=== PATIENT | female | born 1990 | race Caucasian/White ===

== ENCOUNTER 2018-11-22 12:25 | Inpatient (IN) ==
[2018-11-22] MEDS ORDERED: *HR* Labetalol 20 MG/4 ML SYRINGE IVP ONE ×5 (12:50→16:59)
[2018-11-22] MEDS ORDERED: Ringers Solution, Lactated 1,000 ML ONE ×3 (12:53→20:06)
[2018-11-22] MEDS ORDERED: Naloxone 0.4 MG/ML INJ IVP PRN (13:00)
[2018-11-22] MEDS ORDERED: Lidocaine 1% 20 ML MDV INFILT PRN (13:00)
[2018-11-22] MEDS ORDERED: Metoclopramide 10 MG/2 ML VIAL IVP PRN ×2 (13:00→22:28)
[2018-11-22] MEDS ORDERED: Famotidine 20 MG/2 ML VIAL IVP PRN (13:00)
[2018-11-22] MEDS ORDERED: Ringers Solution, Lactated 1,000 ML IVC SCH (13:00)
[2018-11-22] MEDS ORDERED: Ondansetron 4 MG/2 ML VIAL IVP PRN ×2 (13:00→22:28)
[2018-11-22] MEDS ORDERED: Ringers Solution, Lactated 500 ML IVC ONE (13:06)
--- NOTE | 2018-11-22 13:13 | OB/GYN History & Physical ---
Date of Encounter: 11/22/18 Time of Encounter: 13:09 Assessment and Plan (1) and not yet delivered in third trimester Current visit: Yes Status: Acute (2) 36 weeks gestation of Current visit: Yes Status: Acute (3) Chronic hypertension with superimposed pre-eclampsia Current visit: Yes Status: Acute We will admit the patient we will attempt to get blood pressure under control with IV labetalol or hydralazine. Magnesium sulfate and we will discuss induction of labor History of Present Illness HPI: Ms. Garcia is a 28 year old female 2 para 0010 at 36-3/7 weeks who was sent in from the office secondary to hypertension. Patient has a history of chronic hypertension was on labetalol 200 mg 3 times a day blood pressures have been relatively stable however today blood pressure was 160/110. Biophysical profile performed on the office was 8 out of 8. Patient is denying any headaches blurred vision scotoma has not noticed any significant swelling of the lower extremities or upper extremities. She states she did take her labetalol at approximately 9 AM this morning. Upon arrival to labor and delivery patient had blood pressures of 190/115 with a repeat of 173/113. IV was immediately placed and 40 mg labetalol IV push was administered. She has had previous PIH labs and last protein creatinine ratio was 0.57. PIH labs and protein Daphnie ratio is pending at the time of this dictation. States she has been having good movement and biophysical profile again was 8 out of 8 however NST today baby is very flat there is no variability at all. Past Med Surg Social Fam HX - Past Medical History Medical history: hypertension Psychiatric history: no psych history - Past Surgical History Surgical History: other Additional surgical history: Right salpingectomy secondary to ectopic - Social History Smoking Status: Never smoker Smokeless Tobacco Status: No Alcohol use: none Drug use: none Occupational status: employed Current living situation: Home - Independent Activity Level: Independent ambulation Recent Out of Country Travel Within the Last 8 Weeks: No Exposure or Possible Exposure to Illness During Travel: No - Additional Family History Additional family history: Family history noncontributory Obstetrical History - Pregnancies : 2 Para: 0 Term: 0 : 0 Ab's: 1 Livin Review of System OB All systems PM: reviewed and no additional remarkable complaints except as stated Exam - Constitutional Constitutional: well developed, well nourished, mild distress, morbidly obese - HEENT HEENT: EOMI, PERRL - Neck Neck exam: full ROM - Lungs Respiratory exam: CTAB - Cardiovascular Cardiovascular exam: RRR - Abdomen Abdomen: Present: bowel sounds normal, gravid ( heart tones 140s loss of variability no decelerations seen no contractions in) - Cervix Dilation: 1 Effacement: 25 Station: -3 Results All other labs normal. - VTE Reasons for not Prescribing Prophylaxis: Treatment not Indicated - Low risk for VTE
[2018-11-22 13:24] LABS: Basophils % 0.2 %; Eosinophils # 0.1 K/mcL (0.0-0.6); Eosinophils % 0.6 %; Hematocrit 38.3 % (35.3-44.9); Hemoglobin 12.1 g/dL (11.5-15.4); Immature Granulocytes % 2.1 % (0-4); Lymphocytes # 1.6 K/mcL (0.6-4.6); Lymphocytes % 11.6 %; Mean Corpuscular HGB Conc 31.6 g/dL (31.6-35.5); Mean Corpuscular Volume 88.7 fL (83.0-100.0); Mean Platelet Volume 12.4 fL (9.4-12.4); Monocytes # 0.6 K/mcL (0.0-1.3); Neutrophils # 11.4 K/mcL (1.6-8.9); Platelet Count 294 K/mcL (140-400); Red Blood Count 4.32 M/mcL (3.82-4.97); Red Cell Distribution Width 16.4 % (11.5-14.5); Segmented Neutrophils % 81.5 %
[2018-11-22] MEDS ORDERED: Calcium Gluconate 1,000 MG/10 ML VIAL IV PRN (13:24)
[2018-11-22] MEDS ORDERED: Magnesium Sulfate 20 gm/500mL 20 GM/500 ML IV.SOLN IVC SCH (13:30)
[2018-11-22 13:35] LABS: Protein/Creatinine Ratio,Urine 1.23 mg/mg (0.00-0.20)
[2018-11-22 13:36] LABS: Amphetamine Screen,Urine Negative ng/mL (Cutoff=1000); Barbiturate Screen,Urine Negative ng/mL (Cutoff=200); Benzodiazepines Screen,Urine Negative ng/mL (Cutoff=200); Cannabinoid Screen,Urine Negative ng/mL (Cutoff = 50); Cocaine Screen,Urine Negative ng/mL (Cutoff= 300); Opiate Screen,Urine Negative ng/mL (Cutoff=300); Phencyclidine Screen,Urine Negative ng/mL (Cutoff=25)
[2018-11-22 13:52] LABS: Alanine Aminotransferase 10 Units/L (7-52); Aspartate Amino Transferase 15 Units/L (13-39); BUN/Creatinine Ratio 26 (6-26); Blood Urea Nitrogen 21 mg/dL (6-20); Lactate Dehydrogenase 196 Units/L (140-271); Uric Acid 6.9 mg/dL (2.3-7.6); eGFR For African Americans > 60 (> 60); eGFR For Non-African Americans > 60 (> 60)
[2018-11-22] MEDS ORDERED: NIFEdipine XL (24 HR) 60 MG TAB.ER.24 PO SCH (15:23)
[2018-11-22] MEDS ORDERED: Penicillin G Potassium 5,000,000 UNIT in 0.9 % Sodium Chloride Mini Bag 100 ML IVPB ONE (15:46)
[2018-11-22] MEDS ORDERED: Penicillin G Potassium 2,500,000 UNIT in 0.9 % Sodium Chloride 100 ML IVPB SCH (16:00)
--- NOTE | 2018-11-22 17:03 | OB/GYN Progress Note ---
Date of Encounter: 11/22/18 Time of Encounter: 17:00 - Assessment and Plan (1) and not yet delivered in third trimester Current Visit: Yes Status: Acute (2) 36 weeks gestation of Current Visit: Yes Status: Acute (3) Chronic hypertension with superimposed pre-eclampsia Current Visit: Yes Status: Acute Patient will receive another 80 mg of labetalol IV push the blood pressure does not stabilize we will discuss transfer to [facility] Subjective - Subjective Interval history: Patient's blood pressure continues to remain elevated. She currently has received 40 mg of labetalol followed by a milligrams labetalol followed by 10 mg of hydralazine followed by 60 mg XL of Procardia. She received a 6 g bolus of magnesium sulfate and is on 2 g an hour. Her recent blood pressure was 181/100. We will give her another dose of 80 mg labetalol IV push. Patient was discussed with maternal- medicine we will do some recommendations however the recommendation to be could not control her blood pressure would need to be on the nifedipine drip and an ICU setting with me in would have to transfer the patient to go issue. Did discuss with the patient the potential need for transfer due to fact were having difficulty controlling her blood pressure she has an unfavorable cervix at this point I do not feel that proceeding straight to section is warranted yet. We cannot control her blood pressure with 80 mg of labetalol will call M again and discussed transfer. Antepartum ROS: other (hypertension) Objective - Vital Signs Vital Signs: Intake and Output 11/22/18 11/22/18 11/22/18 07:59 15:59 23:59 Other: Weight 150.8 kg Patient Weight 11/22/18 23:59 Weight 150.8 kg - Exam FHR comments: 140s and loss of variability no decelerations seen, no contraction seen Abdomen: Present: normal appearance, other (Morbidly obese with large pannus noted) Cervical dilation: 0 Cervix effacement: thick station: NE - Labs Labs: Abnormal lab results WBC 14.0 K/mcL (4.3-11.1) H 11/22/18 13:00 RDW 16.4 % (11.5-14.5) H 11/22/18 13:00 Neutrophils # 11.4 K/mcL (1.6-8.9) H 09/09/19 13:00 BUN 21 mg/dL (6-20) H 11/22/18 13:00 Protein/Creatinin Ratio 1.23 mg/mg (0.00-0.20) H 11/22/18 13:00 Urine Total Protein 65 mg/dL (1-14) H 11/22/18 13:00
[2018-11-22] MEDS ORDERED: ceFAZolin 3,000 MG in Water for inj. (sterile) 30 ML IVP ONE (18:33)
[2018-11-22] MEDS ORDERED: Azithromycin 500 MG in 0.9 % Sodium Chloride 250 ML IVPB ONE (18:35)
--- NOTE | 2018-11-22 18:37 | Anesthesia Evaluation PreOp ---
Date of Encounter: 11/22/18 Time of Encounter: 18:35 - Past History Planned Operation: csection for uncontrolled hypertension Cardiac History: HTN (chronic hypertension with superimposed PIH) Pulmonary History: Denies Any Significant HX JUTE BAG SEWER History: Denies Any Significant HX Other Medical History: Denies Any Significant HX Anesthesia History: No Prior Anesthetic Complications, Past Anesthesia (laparotomy for ectopic) : Yes (36 weeks, g1) Alcohol Use: none Drug use: none Medications and Allergies Aspirin 81 mg PO ONCE 11/22/18 [History] Ferrous Sulfate 11/22/18 [History] Labetalol HCl 200 mg PO TID 11/22/18 [History] Tablet 11/22/18 [History] Allergy/AdvReac Type Severity Reaction Status Date / Time No Known Allergies Allergy Verified 11/22/18 13:53 - Meds/Allergy Pre-op Review Medications Reviewed: Yes Allergies Reviewed: Yes Beta Blockers on Current Med List: No Anesthesia Results - Labs 11/22/18 13:00 11/22/18 13:00 Anesthesia Exam O2 Sat Height 1.68 m Weight 150.8 kg Height: 66 Weight: 332 NPO (# of Hours): 2 hours clear liquids, 8 hrs solids - HEENT Pupil (Motor): Pupils equal Mallampati: I Teeth: Normal Oral Opening: Greater than 3 - JUTE BAG SEWER LOC: Oriented JUTE BAG SEWER Motor: Normal RUE, Normal LUE, Normal RLE, Normal LLE, Normal Face JUTE BAG SEWER Sensory: Normal: RUE, LUE, RLE, LLE, Face - Cardiac Rhythm: Regular Murmur: None JVD: No Carotid Bruit: No - Pulmonary Breath Sounds: bilateral Clear Respiratory Effort: Symmetrical Anesthesia Assess/Plan ASA Score: 3 Level of consciousness: Cooperative Anesthetic Plan: Epidural Monitoring Plan: Standard Monitors Recovery Plan: PACU
--- NOTE | 2018-11-22 18:40 | OB Labor Progress Note ---
Date of Encounter: 11/22/18 Time of Encounter: 18:38 Labor Progress Note - Subjective Subjective: Patient's blood pressure continues to be a problem we did give her the 80 mg labetalol but the blood pressure in the normal range but baby did not tolerate started having decelerations and became very flat. Having difficulty monitoring the baby due to her morbid obesity and blood pressures creep back up again. We have been unable to even get the induction started and I feel at this point it is unsafe to keep going to have recommended proceeding on with section. This it previously been discussed maternal- medicine advise me if we could not control her blood pressure medically and baby continued to look flat to proceed on with section. This was discussed with the patient and she has given her consent to proceed on with surgery. - Heart Tones Heart Tones: heart tones 140s and loss of variability and occasional decelerations noted - [place]: Occasional contractions seen. - Interventions Interventions: Consent for primary section has been obtained anesthesia has been notified and we will proceed on with a primary low transverse section.
[2018-11-22] MEDS ORDERED: *HR* Morphine Sulfate/PF 10 MG/10 ML AMPUL ONE (18:42)
[2018-11-22] MEDS ORDERED: *HR* FentaNYL (PF) 100 MCG/2 ML VIAL ONE (18:43)
[2018-11-22] MEDS ORDERED: *HR* Oxytocin 10 UNIT/ML VIAL IM ONE ×2 (18:44→20:06)
[2018-11-22] MEDS ORDERED: *HR* Phenylephrine 10 MG/ML VIAL ONE (18:45)
[2018-11-22] MEDS ORDERED: Bupivacaine/PF 0.75% in Dex 2 ML AMPUL INFILT ONE (18:47)
[2018-11-22] MEDS ORDERED: Lidocaine -MPF 2% 5 ML VIAL ONE (18:48)
--- NOTE | 2018-11-22 20:48 | OB/GYN Procedure Note ---
Section - Date of procedure: 11/22/18 Preop diagnosis: other ( at 36-3/7 weeks, severe preeclampsia, nonreassuring heart tones) Post-op diagnosis: same Procedure: primary low transverse Surgeon: Micheal Bearden Quantitated Blood Loss: 500 Was there an speech therapy assistant present: Yes Glassware Maker Demonstrator: Florin Mooney Anesthesiologist: Rosendo Victoria Service Desk Associate: Fidencio Marina Anesthesia Type: Spinal section complications: none Disposition: L&D Recovery Room Specimens: Placenta, Cord gasses - (s) A Infant Delivery Date: 11/22/18 Infant Delivery Time: 19:30 Presentation: vertex Position: MYRANDA Route of delivery: other ( section) Gender: Female Viability: Viable Pounds: 6 Ounces: 4 Gram Weight: 2.84 kg at 1 minute: 6 at 5 minutes: 8 Shoulder Dystocia: not encountered Specimens collected: venous cord gases, arterial cord gases Placenta: spontaneous Cord: nuchal cord (x2), nuchal reduced - Narrative Narrative: Patient is a 28-year-old 2 para 0010 at 36-3/7 weeks who presented from the office secondary to elevated blood pressures. Patient blood pressures in the office of 160/110 on arrival to labor and delivery blood pressures were running in the 180s to 190s over 110-115. Patient did receive IV labetalol multiple doses along with IV hydralazine. Patient was started on magnesium sulfate for the 6 g bolus followed by 2 g an hour. Patient's case was discussed maternal medicine recommended adding Procardia and 60 mg XL was started. We cannot keep patient's blood pressure stable we have given her second dose of labetalol 80 mg per protocol the patient blood pressure went into normal range the baby did not tolerate this. We have difficulty monitoring the patient due to her morbid obesity status and we will monitor baby there was no variability and she was having some decelerations. She had an unfavorable cervix being closed thick and high. We had discussed possible transfer to [facility] unfortunately could not stabilize her blood pressure and heart tones being nonreassuring she was unstable to be transferred. Because we had difficulty monitoring baby and I could not really assess how the baby was doing and blood pressures were too difficult to control a section was called. Procedure: Patient was taken to the operating room where spinal anesthesia was found adequate. She was not a dorsal supine position leftward tilt prepped and draped in usual fashion. Patient's abdomen was taped up prior to being draped. Timeout was then obtained. A Pfannenstiel incision was made with a scalpel and carried down to the underlying tissue until the fascia was identified. Fascia was nicked in midline and extended laterally with Parsons scissors. The superior and inferior edges of the fascia grasped tented up and dissected rectus muscles. Rectus muscles were in midline parietal peritoneum was then applied tented up and entered sharply. This was extended superiorly and inferiorly with Metzenbaum scissors. The bladder blade was inserted the vesicouterine peritoneum was identified tented up and entered sharply. This was extended laterally and the bladder flap was created digitally. The lower uterine segment was incised with a scalpel and incision was extended laterally with digital manipulation. Membranes were ruptured large amount of clear fluid was noted. The infant's head was then brought up through the incision, there was a nuchal cord 2 which was loose and reduced then then the body of the was delivered cord was clamped and cut was handed off to waiting pediatric team. Cord blood was not needed this time but cord gases were obtained. The placenta was delivered spontaneously 3 vessel cord noted. An Luis self- retaining retractor was placed in the incision and secured in place. The uterus was cleaned of all clots and debris and the lower uterine segment was closed using 0 Vicryl in a running locking stitch by to allow closure. We had good hemostasis gutters were cleaned of all clots and debris and copiously irrigated. The omentum was herniating through the incision so the fascia was closed using a 2-0 Vicryl in a running stitch. The fascia was then closed using a 0 double loop PDS from both corners to midline. The subcutaneous Tissue was then closed using a #1 chromic and the skin was closed using a 4-0 Vicryl in a subcuticular manner. All needles and sponge counts were correct 3 a peak a dressing was applied and the patient was taken to the recovery room in stable condition. Patient did receive preoperative antibiotics. We will start magnesium sulfate back on the patient along with her labetalol 200 mg 3 times a day.
--- NOTE | 2018-11-22 22:14 | Anesthesia Evaluation Post Op ---
Date of Encounter: 11/22/18 Time of Encounter: 22:13 - Vital Signs Vital Signs: Vital Signs/O2 Sat, Most Current Temp Pulse Resp BP Pulse Ox 98.1 F 82 18 150/88 97 11/22/18 21:55 11/22/18 21:55 11/22/18 21:55 11/22/18 21:55 11/22/18 21:55 - Lungs Lungs: Clear Ascult./Percussion - Airway Airway: Non-obstructed - Cardiovascular Regular Rate - Mental Status Mental Status: Alert & Oriented, Answers Appropriately - Pain Pain Scale: 4 - Nausea Vomiting Nausea Vomiting: Not Present - Hydration Hydration: Tolerates oral liquids, Meza catheter
[2018-11-22] MEDS ORDERED: Simethicone 80 MG TAB.CHEW PO PRN (22:28)
[2018-11-22] MEDS ORDERED: Sennosides 8.6 MG TABLET PO PRN (22:28)
[2018-11-22] MEDS ORDERED: 0.9 % Sodium Chloride 1,000 ML IVC SCH (22:28)
[2018-11-22] MEDS ORDERED: *HR* OxyCODONE/APAP 10/325 TABLET PO PRN (22:28)
[2018-11-22] MEDS ORDERED: Oxytocin 20 units/ LR 1000 mL 20 UNIT/1,000 ML BAG IVC SCH (22:28)
[2018-11-22] MEDS ORDERED: *HR* OxyCODONE/APAP 5/325 TABLET PO PRN (22:28)
[2018-11-23] MEDS: metroNIDAZOLE 500 MG TABLET PO SCH ×4 (00:49→21:26)
[2018-11-23] MEDS: cephALEXin 500 MG CAPSULE PO SCH ×4 (00:49→21:26)
[2018-11-23 05:53] LABS: Basophils % 0.2 %; Eosinophils % 0.2 %; Hematocrit 33.8 % (35.3-44.9); Hemoglobin 10.9 g/dL (11.5-15.4); Immature Granulocytes % 1.7 % (0-4); Lymphocytes # 1.5 K/mcL (0.6-4.6); Lymphocytes % 9.4 %; Mean Corpuscular HGB Conc 32.2 g/dL (31.6-35.5); Mean Corpuscular Volume 86.9 fL (83.0-100.0); Mean Platelet Volume 11.9 fL (9.4-12.4); Monocytes # 0.7 K/mcL (0.0-1.3); Monocytes % 4.2 %; Neutrophils # 13.6 K/mcL (1.6-8.9); Platelet Count 255 K/mcL (140-400); Red Blood Count 3.89 M/mcL (3.82-4.97); Red Cell Distribution Width 16.8 % (11.5-14.5); Segmented Neutrophils % 84.3 %; White Blood Count 16.1 K/mcL (4.3-11.1)
[2018-11-23] MEDS ORDERED: *HR* Enoxaparin 40 MG/0.4 ML SYRINGE SQ ONE (06:54)
[2018-11-23] MEDS: Ibuprofen 600 MG TABLET PO PRN ×3 (07:56→21:26)
[2018-11-23] MEDS: Prenatal Vit/FA 1 EACH TABLET PO SCH (07:56)
[2018-11-23] MEDS ORDERED: Magnesium Sulfate 20 gm/500mL 20 GM/500 ML IV.SOLN IVC SCH (09:15)
[2018-11-23] MEDS ORDERED: Ringers Solution, Lactated 1,000 ML ONE (12:34)
--- NOTE | 2018-11-23 13:52 | OB/GYN Progress Note ---
Date of Encounter: 11/23/18 Time of Encounter: 13:50 - Assessment and Plan (1) S/P section Current Visit: Yes Status: Acute Routine postop care with magnesium for 24 hours. She is able to get up with assist. (2) Chronic hypertension with superimposed pre-eclampsia Current Visit: Yes Status: Acute Continue Magnesium for 24 hours PP Subjective - Subjective Principal diagnosis: s/p primary for superimposed severe pre-e Interval history: Patient doing well postop. She states her pain is well controlled. She would really like to ambulate if possible. She denies any nausea or vomiting and is tolerating PO intake well. She has not had any headaches, visual changes, or RUQ pain. Patient reports: appetite normal, pain well controlled, no nauseated [place]: doing well, nursing well Objective - Vital Signs Latest vital signs: Vital Signs Temp Pulse Resp BP Pulse Ox 11/23/18 12:19 97.6 F 79 16 127/75 11/23/18 11:50 79 16 127/75 11/23/18 09:50 78 16 108/53 11/23/18 08:59 97.3 F L 81 16 106/59 11/23/18 08:12 97.3 F L 97 11/23/18 07:50 97.5 F L 78 16 131/76 11/23/18 06:50 78 16 133/75 11/23/18 05:40 77 16 153/82 11/23/18 04:40 76 16 151/81 11/23/18 03:40 73 14 139/78 11/23/18 02:40 73 16 142/86 11/23/18 01:40 97.9 F 79 16 149/77 97 11/23/18 00:40 97.9 F 81 16 150/95 98 11/22/18 23:40 98 F 83 16 152/94 96 11/22/18 23:10 97.6 F 83 16 157/90 96 11/22/18 22:40 98.2 F 88 18 159/100 97 11/22/18 22:25 98.1 F 89 18 165/97 97 11/22/18 22:10 98 F 85 18 162/99 98 11/22/18 21:55 98.1 F 82 18 150/88 97 11/22/18 21:40 98.2 F 83 18 159/91 98 11/22/18 21:25 98 F 85 18 160/93 97 11/22/18 21:10 98.1 F 83 18 150/91 98 11/22/18 20:55 98.1 F 88 18 156/92 99 Intake and Output 11/22/18 11/23/18 11/23/18 23:59 07:59 15:59 Intake Total 240 / 240 Output Total 3225 / 3225 3150 / 4050 900 / 4050 Balance -3225 / -3225 -3150 / -3810 -660 / -3810 Intake: Oral 240 / 240 Output: Urine 1000 / 1000 1950 / 2850 900 / 2850 Catheter 2225 / 2225 1200 / 1200 Other: Meal Breakfast Percent of Meal Consumed 100% - Exam Lungs: bilateral: normal Chest: Normal S1, Normal S2 Extremities: Present: normal, edema. Absent: tenderness Abdomen: Present: soft. Absent: rigidity, distention, tenderness Incision: Present: dressed (with Harpreet dressing) Uterus: Present: other (no palpable due to obesity and patient's current position (pumping in seated position)) - Labs Labs: Laboratory Results - last 24 hr 11/22/18 11/22/18 11/23/18 13:00 17:35 05:21 WBC 16.1 H RBC 3.89 Hgb 10.9 L Hct 33.8 L MCV 86.9 MCH 28.0 MCHC 32.2 RDW 16.8 H Plt Count 255 MPV 11.9 Immature Gran % 1.7 Seg Neutrophils % 84.3 Lymphocytes % 9.4 Monocytes % 4.2 Eosinophils % 0.2 Basophils % 0.2 Neutrophils # 13.6 H Lymphocytes # 1.5 Monocytes # 0.7 Eosinophils # 0.0 Basophils # 0.0 BUN 21 H Creatinine 0.82 Est GFR ( Amer) > 60 Est GFR (Non-Af Amer) > 60 BUN/Creatinine Ratio 26 POC Glucose 85 Uric Acid 6.9 Magnesium AST 15 ALT 10 Lactate Dehydrogenase 196 11/23/18 05:21 WBC RBC Hgb Hct MCV MCH MCHC RDW Plt Count MPV Immature Gran % Seg Neutrophils % Lymphocytes % Monocytes % Eosinophils % Basophils % Neutrophils # Lymphocytes # Monocytes # Eosinophils # Basophils # BUN Creatinine Est GFR ( Amer) Est GFR (Non-Af Amer) BUN/Creatinine Ratio POC Glucose Uric Acid Magnesium 4.8 H AST ALT Lactate Dehydrogenase
[2018-11-24] MEDS ORDERED: *HR* Enoxaparin 40 MG/0.4 ML SYRINGE SQ SCH (06:00)
[2018-11-24] MEDS: Ibuprofen 600 MG TABLET PO PRN (08:05)
[2018-11-24] MEDS: metroNIDAZOLE 500 MG TABLET PO SCH (08:05)
[2018-11-24] MEDS: Prenatal Vit/FA 1 EACH TABLET PO SCH (08:05)
[2018-11-24] MEDS: cephALEXin 500 MG CAPSULE PO SCH (08:06)
[2018-11-24 08:57] VITALS: BP 126/80
--- NOTE | 2018-11-24 09:13 | Discharge Summary ---
Date of Encounter: 11/24/18 Time of Encounter: 09:07 - Discharge Diagnosis (1) S/P section Priority: Primary Status: Acute Comments: Patient meeting day two milestones. Pain well-controlled with prescribed medications. Voiding without difficulty, tolerating regular diet, bleeding light. No bowel movement yet, + flatus. Anticipate discharge today (2) Breast feeding status of mother Priority: Secondary Status: Acute Comments: support as needed. Patient states she already has a breast pump. (3) Chronic hypertension with superimposed pre-eclampsia Priority: Secondary Status: Acute Comments: Continue labetalol 200 mg 3 times a day. Patient states she still has a prescription for this dosage at home with 3 refills. Blood pressures have been in normal range with an occasional elevated reading is in her period. She denies any signs and symptoms of elevated blood pressure at this point and requests to go home. She will be scheduled for a follow-up blood pressure check in 1 week. - Discharge Medications Prescriptions: New Ibuprofen [Motrin] 600 mg PO Q6HR PRN #60 tablet PRN Reason: Cramping OxyCODONE/APAP 5/325 [Percocet 5/325 MG] 1 each PO Q6H PRN 7 Days #28 tablet PRN Reason: Moderate pain 4-6 Docusate [Colace] 100 mg PO BID #60 capsule Simethicone [Gas-X] 80 mg PO TID PRN tab.chew PRN Reason: Dyspepsia Continued Labetalol HCl 200 mg PO TID Tablet Aspirin 81 mg PO ONCE Discontinued Ferrous Sulfate Home Medications: Aspirin 81 mg PO ONCE 11/22/18 [History] Labetalol HCl 200 mg PO TID 11/22/18 [History] Tablet 11/22/18 [History] Docusate [Colace] 100 mg PO BID #60 capsule 11/24/18 [Rx] Ibuprofen [Motrin] 600 mg PO Q6HR PRN #60 tablet 11/24/18 [Rx] OxyCODONE/APAP 5/325 [Percocet 5/325 MG] 1 each PO Q6H PRN 7 Days #28 tablet 11/24/18 [Rx] Simethicone [Gas-X] 80 mg PO TID PRN tab.chew 11/24/18 [Rx] Allergies/Adverse Reactions: Allergy/AdvReac Type Severity Reaction Status Date / Time No Known Allergies Allergy Verified 11/22/18 13:53 Data Procedures and tests throughout hospitalization: Laboratory Tests 11/22/18 11/22/18 11/22/18 13:00 13:00 13:00 WBC 14.0 H RBC 4.32 Hgb 12.1 Hct 38.3 MCV 88.7 MCH 28.0 MCHC 31.6 RDW 16.4 H Plt Count 294 MPV 12.4 Immature Gran % 2.1 Seg Neutrophils % 81.5 Lymphocytes % 11.6 Monocytes % 4.0 Eosinophils % 0.6 Basophils % 0.2 Neutrophils # 11.4 H Lymphocytes # 1.6 Monocytes # 0.6 Eosinophils # 0.1 Basophils # 0.0 BUN Creatinine Est GFR ( Amer) Est GFR (Non-Af Amer) BUN/Creatinine Ratio POC Glucose Uric Acid Magnesium AST ALT Lactate Dehydrogenase Urine Creatinine 53 Protein/Creatinin Ratio 1.23 H Urine Total Protein 65 H Urine Opiates Screen Negative Ur Buprenorphine Scrn Negative Ur Barbiturates Screen Negative Ur Phencyclidine Scrn Negative Ur Amphetamines Screen Negative U Benzodiazepines Scrn Negative Urine Cocaine Screen Negative U Marijuana (THC) Screen Negative Ur Drug Screen Interp See Below 11/22/18 11/22/18 11/23/18 13:00 17:35 05:21 WBC 16.1 H RBC 3.89 Hgb 10.9 L Hct 33.8 L MCV 86.9 MCH 28.0 MCHC 32.2 RDW 16.8 H Plt Count 255 MPV 11.9 Immature Gran % 1.7 Seg Neutrophils % 84.3 Lymphocytes % 9.4 Monocytes % 4.2 Eosinophils % 0.2 Basophils % 0.2 Neutrophils # 13.6 H Lymphocytes # 1.5 Monocytes # 0.7 Eosinophils # 0.0 Basophils # 0.0 BUN 21 H Creatinine 0.82 Est GFR ( Amer) > 60 Est GFR (Non-Af Amer) > 60 BUN/Creatinine Ratio 26 POC Glucose 85 Uric Acid 6.9 Magnesium AST 15 ALT 10 Lactate Dehydrogenase 196 Urine Creatinine Protein/Creatinin Ratio Urine Total Protein Urine Opiates Screen Ur Buprenorphine Scrn Ur Barbiturates Screen Ur Phencyclidine Scrn Ur Amphetamines Screen U Benzodiazepines Scrn Urine Cocaine Screen U Marijuana (THC) Screen Ur Drug Screen Interp 11/23/18 05:21 WBC RBC Hgb Hct MCV MCH MCHC RDW Plt Count MPV Immature Gran % Seg Neutrophils % Lymphocytes % Monocytes % Eosinophils % Basophils % Neutrophils # Lymphocytes # Monocytes # Eosinophils # Basophils # BUN Creatinine Est GFR ( Amer) Est GFR (Non-Af Amer) BUN/Creatinine Ratio POC Glucose Uric Acid Magnesium 4.8 H AST ALT Lactate Dehydrogenase Urine Creatinine Protein/Creatinin Ratio Urine Total Protein Urine Opiates Screen Ur Buprenorphine Scrn Ur Barbiturates Screen Ur Phencyclidine Scrn Ur Amphetamines Screen U Benzodiazepines Scrn Urine Cocaine Screen U Marijuana (THC) Screen Ur Drug Screen Interp Date of admission: 11/22/18 12:25 Primary care physician: Felicia White MD Discharging clinician: Alexandra Wilkins Anticipated date of discharge: 11/24/18 - Patient Status Disposition: Home, Self-Care Condition: Good Functional capacity at discharge: independent ambulation Overall status at discharge: patient is progressing back to baseline - Discharge Instructions Follow Up With: Felicia White MD [Primary Care Provider] - Micheal Bearden DO [Partnered Physician] - - Diet and Activity Activity: resume usual activities as tolerated Diet: regular diet Hospital Course Reason for admission: induction of labor, pre-eclampsia (severe) Delivery: section Episiotomy: none Laceration: none Other procedures: none complications: none Discharge diagnosis: IUP at term delivered, pre-eclampsia [place] baby: female Hospital course: Date of procedure: 11/22/18 Preop diagnosis: other ( at 36-3/7 weeks, severe preeclampsia, nonreassuring heart tones) Post-op diagnosis: same Procedure: primary low transverse Surgeon: Micheal Bearden Quantitated Blood Loss: 500 Was there an assistant analyst present: Yes Hand Brush Filler: Florin Mooney Anesthesiologist: Rosendo Victoria Kick Boxer: Fidencio Marina Anesthesia Type: Spinal section complications: none Disposition: L&D Recovery Room Specimens: Placenta, Cord gasses - (s) Infant A Infant Delivery Date: 11/22/18 Delivery Time: 19:30 Presentation: vertex Position: MYRANDA Route of delivery: other ( section) Gender: Female Viability: Viable Pounds: 6 Ounces: 4 Gram Weight: 2.84 kg at 1 minute: 6 at 5 minutes: 8 Shoulder Dystocia: not encountered Specimens collected: venous cord gases, arterial cord gases Placenta: spontaneous Cord: nuchal cord (x2), nuchal reduced - Narrative Narrative: Patient is a 28-year-old 2 para 0010 at 36-3/7 weeks who presented from the office secondary to elevated blood pressures. Patient blood pressures in the office of 160/110 on arrival to labor and delivery blood pressures were running in the 180s to 190s over 110-115. Patient did receive IV labetalol multiple doses along with IV hydralazine. Patient was started on magnesium sulfate for the 6 g bolus followed by 2 g an hour. Patient's case was discussed maternal medicine recommended adding Procardia and 60 mg XL was started. We cannot keep patient's blood pressure stable we have given her second dose of labetalol 80 mg per protocol the patient blood pressure went into normal range the baby did not tolerate this. We have difficulty monitoring the patient due to her morbid obesity status and we will monitor baby there was no variability and she was having some decelerations. She had an unfavorable cervix being closed thick and high. We had discussed possible transfer to [facility] unfortunately could not stabilize her blood pressure and heart tones being nonreassuring she was unstable to be transferred. Because we had difficulty monitoring baby and I could not really assess how the baby was doing and blood pressures were too difficult to control a section was called. Procedure: Patient was taken to the operating room where spinal anesthesia was found adequate. She was not a dorsal supine position leftward tilt prepped and draped in usual fashion. Patient's abdomen was taped up prior to being draped. Timeout was then obtained. A Pfannenstiel incision was made with a scalpel and carried down to the underlying tissue until the fascia was identified. Fascia was nicked in midline and extended laterally with Parsons scissors. The superior and inferior edges of the fascia grasped tented up and dissected rectus muscles. Rectus muscles were in midline parietal peritoneum was then applied tented up and entered sharply. This was extended superiorly and inferiorly with Metzenbaum scissors. The bladder blade was inserted the vesicouterine peritoneum was identified tented up and entered sharply. This was extended laterally and the bladder flap was created digitally. The lower uterine segment was incised with a scalpel and incision was extended laterally with digital manipulation. Membranes were ruptured large amount of clear fluid was noted. The 's head was then brought up through the incision, there was a nuchal cord 2 which was loose and reduced then then the body of the infant was deliv ered cord was clamped and cut was handed off to waiting pediatric team. Cord blood was not needed this time but cord gases were obtained. The placenta was delivered spontaneously 3 vessel cord noted. An Luis self-retaining retractor was placed in the incision and secured in place. The uterus was cleaned of all clots and debris and the lower uterine segment was closed using 0 Vicryl in a running locking stitch by to allow closure. We had good hemostasis gutters were cleaned of all clots and debris and copiously irrigated. The omentum was herniating through the incision so the fascia was closed using a 2-0 Vicryl in a running stitch. The fascia was then closed using a 0 double loop PDS from both corners to midline. The subcutaneous Tissue was then closed using a #1 chromic and the skin was closed using a 4-0 Vicryl in a subcuticular manner. All needles and sponge counts were correct 3 a peak a dressing was applied and the patient was taken to the recovery room in stable condition. Patient did receive preoperative antibiotics. We will start magnesium sulfate back on the patient along with her labetalol 200 mg 3 times a day. Time Attestation: Total time spent providing and/or coordinating discharge services: Time Spent: Less than 30 minutes - VTE Reasons for not Prescribing Prophylaxis: Treatment not Indicated - Low risk for VTE Documentation of Mechanical Device: Intermittent pneumatic compression device Exam - Constitutional Vitals: Temp Pulse Resp BP Pulse Ox 98.1 F 96 18 126/80 97 11/24/18 08:56 11/24/18 08:56 11/24/18 08:56 11/24/18 08:56 11/24/18 04:20 General appearance IM: A&O X 3, morbidly obese, pleasant, no acute distress, answers questions appropriately - Respiratory Respiratory exam: Present: CTAB. Absent: respiratory distress - Cardiovascular Cardiovascular exam IM: Present: RRR, +S1, +S2. Absent: irregular rhythm - GI/Abdominal GI/Abdominal exam IM: normal bowel sounds, soft Incision: dry, dressed (MAXI dry and intact) - Rectal Rectal exam: deferred - External exam: normal external exam Uterine Tone: Firm Uterus Position: At Umbilicus, Midline - Extremities Exam Extremities exam IM: Present: full ROM, normal capillary refill, normal inspection. Absent: calf tenderness - Neurological Exam Neurological exam: alert, normal gait, oriented X3
[2018-11-24] MEDS ORDERED: FLU Vac QV 19-20 (18YR+)/PF 0.5 ML SYRINGE IM ONE (10:51)
[2018-11-24] MEDS ORDERED: FLU Vac QV 19-20 (6Month+)/PF 0.5 ML SYRINGE IM ONE (11:00)
== END 2018-11-24 14:09 | disposition home or self-care (01) | DRG 788 ==
LOC: 1NENULAB → OBSVTOIN 12:25 → 1NENUOBS 11-23 00:09
PROVIDERS: ADMIT Registered Nurse; ATTEND Registered Nurse